=== PATIENT | female | born 1975 | race Caucasian/White ===

== ENCOUNTER → 2016-10-04 | Outpatient (CLI) | payer BC ==
[~2016-10-04] MED LIST: PRENTAB26 PO
== END | disposition home or self-care (01) ==
LOC: C.PAPS 09:53
PROVIDERS: ATTEND Obstetrics & Gynecology
DX: Z01.419 Encounter for gynecological examination (general) (routine) without abnormal findings (principal)

== ENCOUNTER → 2016-11-11 | Outpatient (CLI) | payer BC | END | disposition home or self-care (01) | LOC: C.LABBC 12:21 | PROVIDERS: ATTEND Internal Medicine Geriatric Medicine | DX: R50.9 Fever, unspecified (principal) ==

== ENCOUNTER → 2017-06-27 | Outpatient (CLI) | payer BC ==
[2017-06-27 18:47] LABS: MANUAL MICROSCOPIC REQUIRED? NO; REVIEW REQ? NO; URINE APPEARANCE CLOUDY (CLEAR); URINE BILIRUBIN NEG (NEG); URINE COLOR YELLOW; URINE EPITHELIAL CELL AUTO >30 /lpf (0-5); URINE NITRITE NEG (NEG); URINE SPECIFIC GRAVITY 1.025 (1.000-1.030); UROBILINOGEN NEG (NEG)
== END | disposition home or self-care (01) ==
LOC: C.LABSPEC 17:57
PROVIDERS: ATTEND Physician Assistant
DX: R30.0 Dysuria (principal)

== ENCOUNTER → 2017-09-14 | Outpatient (CLI) | payer BC ==
--- NOTE | 2017-09-14 13:11 | DIAGNOSTIC IMAGING REPORT ---
L-SPINE MIN 4 VIEWS ROUTINE CLINICAL HISTORY: Right leg numbness. COMPARISON: None FINDINGS: There is a transitional vertebra at the lumbosacral junction. For purposes of numbering on this exam, this is designated as S1. The left aspect of this vertebral body is hemisacralized. No fracture or suspicious lesion is present. There is moderate disc space narrowing at L5-S1. There is a disc space at the S1-S2 level. There is mild multilevel facet arthrosis. IMPRESSION: 1. No acute lumbar spine fracture or subluxation. 2. Moderate disc space narrowing at L5-S1 with mild multilevel facet arthrosis. 3. Transitional vertebra at the lumbosacral junction. Please see above numbering scheme for the lumbar spine. Electronically signed by: Kwesi Lombardo M.D. 09/14/2017 1:09 PM Dictated Date/Time: 09/14/2017 1:07 PM
== END | disposition home or self-care (01) ==
LOC: C.RAD1850 12:44
PROVIDERS: ATTEND Nurse Practitioner Adult Health
DX: R20.0 Anesthesia of skin (principal); M99.73 Connective tissue and disc stenosis of intervertebral foramina of lumbar region; M51.86 Other intervertebral disc disorders, lumbar region

== ENCOUNTER 2021-04-09 07:01 | Observation (INO) ==
--- NOTE | 2021-04-05 13:30 | Anesthesiology Consultation ---
Date of Service April 05, 2021 Assessment & Plan (1) Encounter for pre-operative examination: - COVID screening: Per assessment on 04/05: Travel screen negative, no known COVID-19 positive contacts or current COVID-19 related symptoms. Patient vaccinated. Surgeon arranging preop COVID testing. Awaiting results. - Neurology office visit (03/26/21): "Nonspecific white matter foci observed on brain MRI done this past December in the context of persistent headache after receiving the [employer] COVID-19 vaccination. Patient does have a history of episodic migraine. Her headaches have resolved. She does not have any specific or focal neurologic signs or symptoms. No history suggestive of relapses and remissions, progressive neurologic disability, etc. Clinical suspicion for multiple sclerosis or progressive demyelinating disease is low. 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 At this point, given that this patient is clinically asymptomatic, headaches have resolved, and has a perfectly intact neurological examination, I would hold off on obtaining additional neuroimaging at this time. However, would plan for a follow-up gadolinium enhanced brain MRI to be completed in 1 year. If patient's headaches recur or if she develops other significant neurologic symptoms could obtain this follow-up brain MRI in a more timely fashion. I plan to reassess her after her follow-up MRI in 1 year." - Check test AM DOS Chart Review Chart Review: Acceptable Risk for Surgery and Patient NOT seen in Pre Admission Testing History Surgery Operation Date: 04/09/21 11:10 Proposed Procedures p Right Total Knee Arthroplasty - Shahid Sparks, DO Height/Weight Height: 5 ft 1 in Weight: 86.183 kg Allergies Allergy/AdvReac Type Severity Reaction Status Date / Time No Known Drug Allergies Allergy Verified 04/05/21 12:50 Medications Home Medications Medication Instructions Recorded Confirmed Last Taken mjuarsnyonse-Zx-vglj-minerals 1 tab PO QAM tab 04/22/19 04/05/21 Unknown (Multiple Vitamin, Womens) famotidine 20 mg tablet 20 mg PO TID PRN tab 02/16/21 04/05/21 Unknown ibuprofen 800 mg tablet 800 mg PO TID PRN tab 02/16/21 04/05/21 Unknown diclofenac sodium 25 mg 25 mg PO BID PRN 03/26/21 04/05/21 Unknown tablet,delayed release elderberry fruit 200 mg capsule 200 mg PO BID 04/05/21 04/05/21 Unknown norethindrone acetate 1.5 1 tab PO QAM 04/05/21 04/05/21 Unknown mg-ethinyl estradiol 30 mcg tablet (Junel) valacyclovir 1 gram tablet 2,000 mg PO UD PRN 04/05/21 04/05/21 Unknown Past Medical History Medical History Abnormal brain MRI Brain MRI 12/2020 for headaches noting nonspecific white matter foci > following with neurology, low suspicion for multiple sclerosis or demyelinating disease, rec'd f/u gadolinium enhanced brain MRI in one year per 03/26/21 neurology office visit Anemia DDD (degenerative disc disease) History of Lyme disease s/p treatment Obesity Osteoarthritis Polycystic ovarian syndrome Past Family History Family History Father History of heart valve repair Mother Diabetes Grandmother Diabetes Sister Hyperlipidemia Hypertension Aunt Breast cancer Uncle Cancer Other No family history of adverse response to anesthesia Denies family history of Ovarian cancer Prostate cancer Myocardial infarction Colorectal cancer Past Surgical History Surgical History H/O arthroscopic knee surgery Right History of appendectomy History of repair of ACL Right x2 History of wisdom tooth extraction PONV (postoperative nausea and vomiting) Slow to wake up after anesthesia Social History Smoking Status: Never smoker Do You Dip or Chew Tobacco: No Hx Alcohol Use: Yes alcohol intake frequency: holidays/special occasions only Hx Substance Use: No substance use type: does not use Lab Results Anesthesia Preop Results Results Anesthesia Widget: WBC 8.23 K/uL (4.8-10.8) 03/23/21 Hgb 12.6 g/dL (12.0-16.0) 03/23/21 Hct 39.3 % (37-47) 03/23/21 Plt 317 K/uL (130-400) 03/23/21 Na 138 mmol/L (136-145) 03/23/21 K 4.1 mmol/L (3.5-5.1) 03/23/21 Cl 105 mmol/L (98-107) 03/23/21 CO2 29 mmol/L (21-32) 03/23/21 BUN 12 mg/dl (7-18) 03/23/21 Creat 0.60 mg/dl (0.6-1.2) 03/23/21 Glucose Level 93 mg/dl (70-99) 03/23/21 PT 9.8 Seconds (9.0-12.0) 03/23/21 PTT 24.8 Seconds (21.0-31.0) 03/23/21 INR 1.0 (0.9-1.1) 03/23/21 TSH 2.990 uIu/ml (0.300-4.500) 02/16/21 HA1c 5.3 % (4.5-5.6) 02/16/21 Blood Type B Positive 03/23/21 Antibody Screen NEGATIVE 03/23/21 Testing Electrocardiogram Date: 03/23/21 NSR with sinus arrhythmia at 62bpm. Normal ECG. Chest X-Ray Date: 03/23/21 Findings: + NAD
--- NOTE | 2021-04-08 11:13 | History & Physical Report ---
Date of Service April 08, 2021 Assessment & Plan (1) Tricompartment osteoarthritis of right knee: We will proceed with a right total knee arthroplasty. Postoperatively she will be started on aspirin for DVT prophylaxis and kept overnight in the hospital for postoperative medical management. She plans to go to outpatient physical therapy at [facility] in [place] upon discharge. History of Present Illness Chief Complaint: Osteoarthritis of the right knee. Primary Care Provider: Mahamed Arevalo MD Bonita is a pleasant 45-year-old female who is been doing with chronic worsening right knee pain. She has had 3 arthroscopies of her right knee. She had an ACL done in 2004 and her last arthroscopy was done in 2009. Unfortunately she has gone on to have continued pain in the right knee. She has failed years of conservative treatment. X-rays have shown worsening arthritis. After failing conservative treatment, she has elected to proceed with a right total knee arthroplasty.. Allergies Allergy/AdvReac Type Severity Reaction Status Date / Time No Known Drug Allergies Allergy Verified 04/05/21 12:50 Home Medications Medication Instructions Recorded Confirmed Type gsctgemrzaew-Gf-dqnl-minerals 1 tab PO QAM tab 04/22/19 04/05/21 History (Multiple Vitamin, Womens) famotidine 20 mg tablet 20 mg PO TID PRN tab 02/16/21 04/05/21 History ibuprofen 800 mg tablet 800 mg PO TID PRN tab 02/16/21 04/05/21 History diclofenac sodium 25 mg 25 mg PO BID PRN 03/26/21 04/05/21 History tablet,delayed release elderberry fruit 200 mg capsule 200 mg PO BID 04/05/21 04/05/21 History norethindrone acetate 1.5 1 tab PO QAM 04/05/21 04/05/21 History mg-ethinyl estradiol 30 mcg tablet (Junel) valacyclovir 1 gram tablet 2,000 mg PO UD PRN 04/05/21 04/05/21 History Past Med/Surg History Medical History Abnormal brain MRI Brain MRI 12/2020 for headaches noting nonspecific white matter foci > following with neurology, low suspicion for multiple sclerosis or demyelinating disease, rec'd f/u gadolinium enhanced brain MRI in one year per 03/26/21 neurology office visit Anemia DDD (degenerative disc disease) History of Lyme disease s/p treatment Obesity Osteoarthritis Polycystic ovarian syndrome Surgical History H/O arthroscopic knee surgery Right History of appendectomy History of repair of ACL Right x2 History of wisdom tooth extraction PONV (postoperative nausea and vomiting) Slow to wake up after anesthesia Family History Father History of heart valve repair Mother Diabetes Grandmother Diabetes Sister Hyperlipidemia Hypertension Aunt Breast cancer Uncle Cancer Other No family history of adverse response to anesthesia Denies family history of Ovarian cancer Prostate cancer Myocardial infarction Colorectal cancer Social History Smoking Status: Never smoker Second Hand Exposure: No; Hx Alcohol Use: Yes Hx Substance Use: No Preferred Language: Belarusian Communication Ability: Effective Financial Institution Treasurer Required: No Beliefs That Will Affect Care: None marital status: Current Living Situation: Spouse current occupational status: employed current occupation: Teacher & PT at [employer] Feels Safe at Home: Yes Dental Care, Regularly: Yes Physical Activity Frequency: 1-2 Times per Week Seatbelt Use: always Sunscreen Use: No Assistive Devices: Contacts and Glasses Review of Systems All systems reviewed & are unremarkable except as noted in HPI & below. Physical Exam On physical examination of the right knee, she has decent motion of 0 to 115 degrees. She has no instability. She is significant pain over the distal medial femoral condyle and over the medial joint line. Constitutional WD/WN, vitals as above Eyes PERRL, conjunctivae normal, anicteric sclerae ENMT external ear and nose normal, oropharynx normal Neck trachea midline, no thyromegaly Respiratory normal respiratory effort Cardiovascular RRR, no murmur, no edema Gastrointestinal (Abdomen) normal bowel sounds, soft, nontender, no hepatosplenomegaly Psychiatric A+Ox3, euthymic affect Results & Data Results & Data Laboratory Results . Diagnostic Findings X-rays of the right knee do show advanced arthritis with joint space narrowing, osteophyte formation, and ssgc-qy-xfgw articulation. There is hardware from the previous surgical procedures.. PG Care Time/CCT Total # of Minutes Spent Total Time Spent with Patient: Total time spent is greater than 50% in coordination of care (as documented) at patient's floor/unit and/or counseling patient: Coding Level of Care Code None Diagnoses Tricompartment osteoarthritis of right knee M17.11
[~2021-04-09 07:01] MED LIST changes: +ACETAMINOPHEN 500 MG TAB PO SCH; +BUPIVACAINE LIPOSOME/PF 266 MG, BUPIVACAINE/EPINEPHRINE 50 ML, SODIUM CHLORIDE 0.9% 30 ... INFIL SCH; +FAMOTIDINE 20 MG TAB PO SCH; +GABAPENTIN 900 MG DOSE PO SCH; +LR 500ML BOLUS, THEN 15ML/HR IV SCH; +LR 60ML/HR IV SCH; -PRENTAB26 PO; +ROPIVACAINE 0.5% HCL/PF 150 MG, BUPIVACAINE 0.75% MPF 20 ML, EPINEPHrine 30MG/30ML (OR ... INFIL SCH; +TRANEXAMIC ACID 1,000 MG **IV Intra-op IV SCH; +TRANEXAMIC ACID 1,000 MG **IV Pre-op IV SCH; +ceFAZolin 2000MG 2,000 MG/15 ML SYR IV SCH; +dexAMETHasone 4 MG TAB PO SCH
[2021-04-09] MEDS ORDERED: ROPIVACAINE 0.5% 5 MG/ML 30 ML VIAL ONE (07:08)
[2021-04-09] MEDS ORDERED: BUPIVACAINE 0.5 % 5 MG/1 ML PF 10ML VIAL ONE (07:08)
[2021-04-09] MEDS ORDERED: EPINEPHrine INJ 1 MG/ML AMP ONE (07:09)
[2021-04-09] MEDS ORDERED: LABETALOL HCL IV 5 MG/ML 20ML IV PRN (08:01)
[2021-04-09] MEDS ORDERED: PHENYLEPHRINE 100MCG/ML 5ML SYR IV PRN (08:01)
[2021-04-09] MEDS ORDERED: ePHEDrine sulfate 50 MG/ML AMP IV PRN (08:01)
[2021-04-09] MEDS ORDERED: HYDROmorphone INJ 1 MG/ML SYRINGE IV PRN (08:01)
[2021-04-09] MEDS ORDERED: fentaNYL citrate 100 MCG/2 ML VIAL IV PRN (08:01)
[2021-04-09] MEDS ORDERED: ONDANSETRON INJ 2 MG/ML 2 ML VIAL IV PRN ×2 (08:01→14:02)
[2021-04-09] MEDS ORDERED: MEPERIDINE HCL 25 MG/ML CARP/VIAL IV PRN (08:01)
[2021-04-09] MEDS ORDERED: ATROPINE SULFATE 0.1 MG/ML 10ML SYR IV PRN (08:01)
[2021-04-09] MEDS ORDERED: MIDAZOLAM HCL 1 MG/ML 2ML VIAL ONE ×2 (08:24)
--- NOTE | 2021-04-09 09:51 | History & Physical Bridge Note ---
Date of Service April 09, 2021 History & Physical Bridge Note I have examined the patient, reviewed the History & Physical and in the interval since the performance of the History & Physical I have noted the following changes of clinical significance: no changes noted
[2021-04-09] MEDS ORDERED: ORTHO JOINT ANESTHETIC ONE (10:13)
[2021-04-09] MEDS ORDERED: PROPOFOL IV EMULSION 10 MG/ML 20 ML VIAL IV ONE (11:05)
[2021-04-09] MEDS ORDERED: ONDANSETRON INJ 2 MG/ML 2 ML VIAL ONE ×2 (11:05→11:09)
[2021-04-09] MEDS ORDERED: LIDOCAINE 2% 2 ML VIAL/AMP(20MG/ML) INFIL ONE (11:05)
--- NOTE | 2021-04-09 11:57 | Operative Report ---
PG Post Operative Report Pre & Post Diagnosis Operation Date: 04/09/21 09:30 Pre-Op Diagnosis: Degenerative Joint Disease Right Knee Post-Op Diagnosis: Degenerative Joint Disease Right Knee I identified the patient and participated in the time-out.: Yes Procedure Operation Date: 04/09/21 09:30 Actual Procedures p Right Total Knee Arthroplasty(Right) - Shahid Sparks DO Surgeon Shahid Sparks DO Destination Coordinator Shahid Vann PAC Estimated Blood Loss 10 Findings Consistent with Post-Op Diagnosis Specimens Right femoral and tibial bone Complications none Disposition Disposition: Recovery Room Indications Bonita is a pleasant 45-year-old female who has had 3 right knee procedures in the past. Unfortunate she is gone on to develop advanced arthritis of the right knee. After failing conservative treatment, she has elected proceed with a right total knee arthroplasty. Description of Procedure Implants used: I used a Sage Persona total knee arthroplasty system with a size 7 narrow femur, D tibia, 32 patella, and a size 10 medial congruent polyethylene bearing. All components were cemented in place with Biomet cement. Bonita arrived [facility] for the above procedure. She was seen in the preoperative holding area and the operative extremity was identified and signed. She was given a preoperative antibiotic, TXA, a spinal anesthetic and an adductor nerve block. She was taken back to the operating room and laid on the table in supine position. She was given basic sedation. The operative knee was then prepped and draped in sterile fashion. A timeout was done, and the patient and the operative extremity was properly identified. A midline incision was made directly over the patella. Dissection was taken down to the extensor mechanism. A subvastus arthrotomy was used. The medial retinaculum was released and the fat pad was mostly excised. The knee was flexed and the ACL, PCL, and meniscus were removed. A drill was sent down the center of the femoral canal followed by an intramedullary radha. Off that radha a distal femoral cutting block was placed. 9 mm was resected off the distal femur at 5 of valgus. A posterior referencing AP sizing guide was then placed on the distal femur. The femur measured to be a size 7 narrow. 2 drill holes were placed in 3 of external rotation. A 4-in-1 cutting block was then impacted into place. Anterior, posterior, and chamfer cuts were then made. The proximal tibia was then exposed. An external tibial alignment guide was placed. A tibial cut guide was then anchored in place and the proximal tibia was then resected. The posterior aspect of the knee was then opened up and any additional meniscus fragments and osteophytes were removed. The tibia measured to be a size D. The tibial plate was then placed in the appropriate rotation and the tibia was drilled and punched. Trial components were then placed. I used a size 10 medial congruent polyethylene insert. The knee was brought through a full range of motion and felt to be stable. The peg holes for the femoral component were then drilled. The patella was then everted and 9 mm was resected off the posterior aspect of the patella. The patella measured to be a size 32. 3 peg holes were then drilled. A trial patella was placed. The knee was once again brought through a full range of motion and felt to be stable. Trial components were then removed. The surrounding soft tissues were injected with 100 cc of an orthopedic pain control cocktail. All components were then cemented into place with Biomet cement. The final polyethylene insert was then snapped into place. Once cement was dry the tourniquet was deflated. Hemostasis was obtained. A dilute betadyne lavage was then done for 3 minutes. The joint was then irrigated with normal saline solution. The subvastus arthrotomy was then closed with #1 Vicryl suture. The skin was closed with 2-0 Vicryl, 3-0V lock suture, and colt. A soft compressive dressing was placed. She was then transferred to a hospital bed and taken to the postanesthesia care unit in stable condition. She tolerated the procedure well. Shahid Vann PA-C, was present for the entire procedure. He was critical for patient positioning, prepping, draping, retraction exposure, wound closure and application of sterile dressing. I attest to the content of the Intraoperative Record and any orders documented therein. Any exceptions are noted below.
--- NOTE | 2021-04-09 12:38 | XRay Report ---
XR knee RT 1 or 2V routine CLINICAL HISTORY: Postoperative evaluation. COMPARISON: Right knee radiographs March 01, 2021. FINDINGS: Alignment of the total right knee arthroplasty is anatomic. There is no periprosthetic fra cture. No unexpected radiopaque foreign body is noted. There are skin colt. Postoperative findings from previous ACL reconstruction are noted. IMPRESSION: Expected findings following right knee arthroplasty. ACT 112: Negative or not required by law. Electronically signed by: Kwesi Lombardo M.D. 04/09/2021 12:37 PM
--- NOTE | 2021-04-09 13:07 | Anesthesiology Progress Note ---
Date of Service April 09, 2021 Anesthesia Post Procedure Vital Signs Vital Signs: Temp Pulse Pulse Resp BP BP Pulse Ox 04/09/21 12:55 86 20 127/92 94 04/09/21 12:45 93 H 24 136/79 94 04/09/21 12:35 96 H 24 126/81 95 04/09/21 12:25 97 H 24 132/77 99 04/09/21 12:19 37.1 C 104 H 16 115/61 95 04/09/21 08:30 85 18 152/91 H 97 04/09/21 08:04 36.9 C 94 H 20 163/83 H 97 Transfer of Care Handoff Completed per policy Notes Mental Status: alert / awake / arousable Patient Amnestic to Procedure: Yes Nausea / Vomiting: adequately controlled Pain: adequately controlled Airway Patency, RR, SpO2: stable & adequate BP & HR: stable & adequate Hydration State: stable & adequate Neuraxial Anesthesia: was administered and sensory block is resolving Anesthetic Complications: no major complications apparent and Pt Satisfied with anesthetic care
[2021-04-09] MEDS ORDERED: METOCLOPRAMIDE HCL INJ 5 MG/ML 2 ML VIAL IV PRN (14:02)
[2021-04-09] MEDS ORDERED: bisacodyL 10 MG SUPP PR PRN (14:02)
[2021-04-09] MEDS ORDERED: MAGNESIUM HYDROXIDE SUSP 30 ML UDC PO PRN (14:02)
[2021-04-09] MEDS ORDERED: FAMOTIDINE 20 MG TAB PO PRN (14:02)
[2021-04-09] MEDS ORDERED: HYDROmorphone INJ 0.5 MG/0.5 ML SYR IV PRN (14:02)
[2021-04-09] MEDS ORDERED: NALOXONE HCL 0.4 MG/1 ML VIAL/CARP IV PRN (14:02)
[2021-04-09] MEDS ORDERED: valACYclovir HCL 500 MG TABLET PO PRN (14:02)
[2021-04-09] MEDS: SODIUM CHLORIDE 0.9% 1000ML 1,000 ML IV SCH (14:16)
[2021-04-09] MEDS: ACETAMINOPHEN 500 MG TAB PO SCH ×2 (15:24→21:05)
[2021-04-09] MEDS: KETOROLAC 30 MG/ML VIAL IV SCH ×2 (15:25→21:04)
[2021-04-09] MEDS: ceFAZolin 2000MG 2,000 MG/15 ML SYR IV SCH (17:36)
[2021-04-09] MEDS ORDERED: SENNA 8.6 MG TAB PO SCH (21:00)
[2021-04-09] MEDS: ASPIRIN 81 MG ECTAB PO SCH (21:05)
[2021-04-09] MEDS: DOCUSATE SODIUM 100 MG CAP PO SCH (21:06)
[2021-04-09] MEDS: oxyCODONE HCL IR 5 MG TAB (IMMEDIATE RELEASE) PO PRN (21:58)
[2021-04-10] MEDS: SODIUM CHLORIDE 0.9% 1000ML 1,000 ML IV SCH (01:01)
[2021-04-10] MEDS: KETOROLAC 30 MG/ML VIAL IV SCH ×2 (02:15→08:51)
[2021-04-10] MEDS: ceFAZolin 2000MG 2,000 MG/15 ML SYR IV SCH (02:15)
[2021-04-10] MEDS: ACETAMINOPHEN 500 MG TAB PO SCH (06:22)
[2021-04-10 07:51] VITALS: PULSE 70; TEMP 98.8; O2SAT 97
--- NOTE | 2021-04-10 07:56 | Orthopedic Progress Note ---
Date of Service April 10, 2021 Assessment & Plan (1) Status post right knee replacement: Overall she is doing very well. She is not having much pain in the right knee. She will be seen by physical therapy today for ambulation and range of motion exercises. She is on aspirin for DVT prophylaxis. She can be discharged home later today. She will follow-up with orthopedics in 2 weeks. Freddie Mesa was seen and examined at bedside this morning. Overall she doing very well. She is not having much pain in the right knee. She has been up and ambulating to the bathroom. She has no complaints.. Review of Systems All systems reviewed & are unremarkable except as noted in HPI & below. Physical Exam On physical examination of the right knee, the dressing is clean and dry. Her leg is out in full extension. She has active dorsiflexion plantarflexion of her right ankle.. Results & Data Results & Data Laboratory Results . Diagnostic Findings Postoperative x-rays of the right knee show the prosthesis to be in anatomic alignment without any evidence of fracture, dislocation, or loosening. PG Care Time/CCT Total # of Minutes Spent Total Time Spent with Patient: Total time spent is greater than 50% in coordination of care (as documented) at patient's floor/unit and/or counseling patient: Coding Level of Care Code 15589 Post Operative Follow-Up Diagnoses Status post right knee replacement Z96.651
--- NOTE | 2021-04-10 07:57 | Discharge Summary ---
Date of Service April 10, 2021 Admission HPI (Per Admitting) Bonita is a pleasant 45-year-old female who is been doing with chronic worsening right knee pain. She has had 3 arthroscopies of her right knee. She had an ACL done in 2004 and her last arthroscopy was done in 2009. Unfortunately she has gone on to have continued pain in the right knee. She has failed years of conservative treatment. X-rays have shown worsening arthritis. After failing conservative treatment, she has elected to proceed with a right total knee arthroplasty.. Admission Exam (Per Admitting) On physical examination of the right knee, she has decent motion of 0 to 115 degrees. She has no instability. She is significant pain over the distal medial femoral condyle and over the medial joint line. Principal Diagnosis Same as "Discharge Diagnosis" noted below under Discharge Instructions. Discharge Exam On physical examination of the right knee, the dressing is clean and dry. Her leg is out in full extension. She has active dorsiflexion plantarflexion of her right ankle.. Discharge Data Procedures Performed Operation Date: 04/09/21 09:30 Actual Procedures p Right Total Knee Arthroplasty(Right) - Shahid Sparks DO Ordered Studies 04/09/21 05:00 US - OR guided needle placemen Stat Hospital Course (1) Status post right knee replacement: On April 09, 2021 Bonita arrived at [facility] and underwent a right knee replacement without complication. She had a spinal anesthetic. Postoperatively she was started on aspirin for DVT prophylaxis and transferred to the general orthopedic floors. Her hospital course was uneventful. On postop day #1 her vital signs were stable and her pain was well controlled. She was able to participate well with physical therapy doing ambulation and range of motion exercises. She was then discharged home. She will follow-up with orthopedics in 2 weeks. PG Care Time/CCT Total # of Minutes Spent Total Time Spent with Patient: Total time spent is greater than 50% in coordination of care (as documented) at patient's floor/unit and/or counseling patient: Discharge Plan Discharge Items Patient Disposition: Home - Home Health Services Reason For Visit: Degenerative Joint Disease Right Knee Discharge Diagnosis: Right knee replacement Activity: As commented below Non-emergency contact: Surgeon Call non-emergency contact if: your wound has increased redness and your wound has increased drainage Follow-up/Referrals: ProMahamed MD [Primary Care Provider] - Diet: Regular Addtl Attending Provider Instructions: Activity and Therapy Recommendations: * If you are using [facility] then therapy will be provided at your home until they feel you have accomplished all of your goals. * If you are using [facility] then Physical Therapy will be provided until they feel you are ready to start Outpatient Physical Therapy. * If you are not using home therapy then Outpatient Physical Therapy should start about 3-5 days from your day of surgery. Therapy will last about 6-10 weeks * It is important not to put a pillow under your knee when you are relaxing or sleeping. It is just as important to make sure you are getting your knee perfectly straight as it is to regain your knee bend. * You were shown a series of exercises in the hospital. Do these exercises three times each day including the exercises you were shown in physical therapy. * Get up and walk several times each day. For the first four weeks, try not to stand or walk for more than one hour at a time. If you do stand or walk for more than one hour, you will not hurt anything, but your leg will likely swell. * As you feel comfortable, you may change from the walker or crutches to a cane and then to independent walking. Medications: * Narcotic You will likely be sent home from the hospital with a prescription for the narcotic pain medication that worked best throughout your stay. * Aspirin Most patients will be required to take Aspirin 81mg twice a day for 6 weeks after surgery. This is obtained [id number] and a prescription is not necessary. * Other medications may be prescribed for specific circumstances. If you have any questions, please call the office at . * Resume previous home medications unless otherwise instructed TEDs/Elastic Stockings: The white elastic stockings help limit swelling and prevent blood clots from forming in your legs.~ The more you wear them, the more they work. Wear them for six weeks. Dressing Care: The dressing can be changed after physical therapy on postop day #1. Daily dry dressing changes for a few days, especially if the incision is still draining some. If the incision is not draining then you may leave the colt open to air. If there is a little bit of drainage or if the colt are getting stuck on your clothing then cover the incision with a dry dressing. The colt will be removed at your 2 week follow-up appointment. Showering: You may shower 5 days from the day of surgery as long as the incision is no longer draining. You may shower with the colt exposed. Let soapy water run over the colt and pat them dry. Do not scrub or soak the incision. Things To Watch For: * Drainage from the incision site that occurs more than one week after your surgery. * Increased redness at the incision site. * Fever above 102 degrees Fahrenheit. * Unusual chest pain or shortness of breath. * Call [facility] at with any of the above problems Follow-Up Visit: Follow-up with Dr. Sparks's PA (Shahid Vann) 2-3 weeks after your day of surgery. He will remove your colt and answer any questions. If you have any additional questions or concerns, Dr Sparks is usually in the office at the same time and will be available An appointment was probably scheduled when you signed-up for surgery in the office. If you have any questions call Office Instructions: More detailed instructions as well as Frequently Asked Questions were provided in a folder by our office when you signed-up for surgery. Please review these instructions when you get home. If you have any further questions or concerns, please feel free to call the office at [phone] Pending Studies at Discharge: No Stand-Alone Forms: My [facility] [employer] - Touch[employer]ize, Smoking Cessation Medications and DC Order Prescriptions: New oxycodone 5 mg Tablet 5 mg PO Q4H PRN (Reason: pain) Qty: 40 RF: 0 aspirin 81 mg Tablet,Delayed Release (Dr/Ec) 81 mg PO BID 42 Days Qty: 84 RF: 0 Continued Multiple Vitamin, Womens tablet 1 tab PO QAM RF: 0 famotidine 20 mg tablet 20 mg PO TID PRN (Reason: takes with NSAIDS ) RF: 0 ibuprofen 800 mg tablet 800 mg PO TID PRN (Reason: Pain) RF: 0 diclofenac sodium 25 mg tablet,delayed release (DR/EC) 25 mg PO BID PRN (Reason: Pain) RF: 0 Elderberry 200 mg Capsule 200 mg PO BID RF: 0 valacyclovir 1 gram tablet 2,000 mg PO UD PRN (Reason: Cold Sores) RF: 0 norethindrone ac-eth estradiol [ ()] 1.5-30 mg-mcg tablet 1 tab PO QAM RF: 0 Discharge Orders: Discharge Order (Routine); Ordered 04/10/21 Ordered By: Shahid Sparks Admission Data Admit Date/Time: 04/09/21 12:23 Attending Provider: Shahid Sparks Admit Provider: Shahid Sparks Primary Care Provider: Mahamed Arevalo
[2021-04-10] MEDS ORDERED: dexAMETHasone 4 MG TAB PO SCH (08:00)
[2021-04-10 08:40] VITALS: BP 126/78
[2021-04-10] MEDS: oxyCODONE HCL IR 5 MG TAB (IMMEDIATE RELEASE) PO PRN (08:48)
[2021-04-10] MEDS: DOCUSATE SODIUM 100 MG CAP PO SCH (08:50)
[2021-04-10] MEDS: ASPIRIN 81 MG ECTAB PO SCH (08:50)
[2021-04-10] MEDS ORDERED: MULTIVITAMIN TAB PO SCH (09:00)
== END 2021-04-10 11:26 | disposition home health service (06) ==
LOC: 3E 07:01 → ASU 07:01